=== PATIENT | female | born 1995 | race Caucasian/White ===

== ENCOUNTER 2017-05-08 07:03 | Inpatient (IN) | payer MEDICAID ==
[2017-05-08] MEDS ORDERED: Carboprost Tromethamine 250 MCG/1 ML Amp IM PRN (07:13)
[2017-05-08] MEDS ORDERED: Nalbuphine 10 MG/1 ML Vial IVPUSH PRN (07:13)
[2017-05-08] MEDS ORDERED: Sodium Chloride 0.9% 10 ML Syringe FLUSH PRN (07:13)
[2017-05-08] MEDS ORDERED: Butorphanol 1 MG/ML SDV IVPUSH PRN (07:13)
[2017-05-08] MEDS ORDERED: Terbutaline 1 MG/ML SDV SUBCUT PRN (07:13)
[2017-05-08] MEDS ORDERED: Misoprostol 200 MCG Tab PO PRN (07:13)
[2017-05-08] MEDS ORDERED: Water For Irrigation,Sterile 1,000 ML Container IRR PRN (07:13)
[2017-05-08] MEDS ORDERED: Lidocaine 1% 50 ML MDV INJECT PRN (07:13)
[2017-05-08] MEDS ORDERED: Methylergonovine 0.2 MG/1 ML Amp IM PRN ×2 (07:13→14:03)
[2017-05-08] MEDS ORDERED: Sodium Chloride 0.9% 2.5 ML Syringe FLUSH PRN (07:13)
[2017-05-08] MEDS ORDERED: Oxytocin/Lactated Ringers 30 UNIT/500 ML BAG IV SCH ×2 (07:15)
[2017-05-08] MEDS: Lactated Ringers 1,000 ML IV SCH ×2 (08:05→11:12)
--- NOTE | 2017-05-08 08:07 | PCM.PNPP ---
- General Info Date of Service: 05/08/17 Admission Dx/Problem (Free Text): Induction of labor - Patient Data Weight - Most Recent: 83.007 kg Lab Results - Last 24 Hours: Laboratory Results - last 24 hr 05/08/17 Range/Units 07:38 WBC 10.86 (4.0-11.0) K/uL RBC 3.79 L (4.30-5.90) M/uL Hgb 10.7 L (12.0-16.0) g/dL Hct 32.2 L (36.0-46.0) % MCV 85.0 (80.0-98.0) fL MCH 28.2 (27.0-32.0) pg MCHC 33.2 (31.0-37.0) g/dL RDW Std Deviation 41.2 (28.0-62.0) fl RDW Coeff of Park 14 (11.0-15.0) % Plt Count 310 (150-400) K/uL MPV 9.20 (7.40-12.00) fL Nucleated RBC % 0.0 /100WBC Nucleated RBCs # 0 K/uL Med Orders - Current: Current Medications Butorphanol Tartrate (Stadol) 1 mg IVPUSH Q1H PRN PRN Reason: Pain Carboprost Tromethamine (Hemabate Ds) 250 mcg IM ASDIRECTED PRN PRN Reason: Post Hemorrhage Lactated Ringer's (Ringers, Lactated) 1,000 mls @ 150 mls/hr IV ASDIRECTED LAUREL Oxytocin/Lactated Ringer's (Pitocin In Lr 30 Units/500 Ml) 30 unit in 500 mls @ 2 mls/hr IV TITRATE LAUREL; 2 MUNITS/MIN PRN Reason: Protocol Lidocaine HCl (Xylocaine 1%) 50 ml INJECT .ONCE PRN PRN Reason: Laceration repair Methylergonovine Maleate (Methergine) 0.2 mg IM ASDIRECTED PRN PRN Reason: Post Hemorrhage Misoprostol (Cytotec) 200 mcg PO .ONCE PRN PRN Reason: Post Hemorrhage Nalbuphine HCl (Nubain) 10 mg IVPUSH Q1H PRN PRN Reason: Pain (severe 7-10) Sodium Chloride (Saline Flush) 10 ml FLUSH ASDIRECTED PRN PRN Reason: Keep Vein Open Sodium Chloride (Saline Flush) 2.5 ml FLUSH ASDIRECTED PRN PRN Reason: Keep Vein Open Sterile Water (Sterile Water For Irrigation) 1,000 ml IRR ASDIRECTED PRN PRN Reason: delivery Terbutaline Sulfate (Brethine) 0.25 mg SUBCUT ASDIRECTED PRN PRN Reason: Tacysystole Discontinued Medications Oxytocin/Lactated Ringer's (Pitocin In Lr 30 Units/500 Ml) 30 unit in 500 mls @ 999 mls/hr IV TITRATE LAUREL; 999 MUNITS/MIN PRN Reason: Protocol Stop: 05/08/17 07:46
--- NOTE | 2017-05-08 11:20 | PCM.PREANE ---
Preanesthetic Assessment - Anesthesia/Transfusion/Family Hx Anesthesia History: Prior Anesthesia Without Reaction (with Spinal headache) - Review of Systems General: No Symptoms Pulmonary: No Symptoms Cardiovascular: No Symptoms Gastrointestinal: No Symptoms Neurological: No Symptoms Other: Reports: None - Physical Assessment Height: 5 ft 5 in Weight: 83.007 kg ASA Class: 2 Mental Status: Alert & Oriented x3 Airway Class: Mallampati = 2 Dentition: Reports: Normal Dentition Thyro-Mental Finger Breadths: 3 Mouth Opening Finger Breadths: 3 ROM/Head Extension: Full Lungs: Clear to Auscultation, Normal Respiratory Effort Cardiovascular: Regular Rate, Regular Rhythm - Lab Values: Laboratory Last Values WBC 10.86 K/uL (4.0-11.0) 05/08/17 07:38 RBC 3.79 M/uL (4.30-5.90) L 05/08/17 07:38 Hgb 10.7 g/dL (12.0-16.0) L 05/08/17 07:38 Hct 32.2 % (36.0-46.0) L 05/08/17 07:38 MCV 85.0 fL (80.0-98.0) 05/08/17 07:38 MCH 28.2 pg (27.0-32.0) 05/08/17 07:38 MCHC 33.2 g/dL (31.0-37.0) 05/08/17 07:38 RDW Std Deviation 41.2 fl (28.0-62.0) 05/08/17 07:38 RDW Coeff of Park 14 % (11.0-15.0) 05/08/17 07:38 Plt Count 310 K/uL (150-400) 05/08/17 07:38 MPV 9.20 fL (7.40-12.00) 05/08/17 07:38 Nucleated RBC % 0.0 /100WBC 05/08/17 07:38 Nucleated RBCs # 0 K/uL 05/08/17 07:38 Blood Type O POSITIVE 05/08/17 07:38 Antibody Screen NEGATIVE 05/08/17 07:38 - Allergies Allergies/Adverse Reactions: Allergies Allergy/AdvReac Type Severity Reaction Status Date / Time oxycodone Allergy Itching Verified 05/03/17 18:43 sulfamethoxazole Allergy Cannot Verified 05/03/17 18:44 [From ] Remember trimethoprim [From ] Allergy Cannot Verified 05/03/17 18:44 Remember - Acknowledgements Anesthesia Type Planned: Epidural Pt an Appropriate Candidate for the Planned Anesthesia: Yes Alternatives and Risks of Anesthesia Discussed w Pt/Guardian: Yes Pt/Guardian Understands and Agrees with Anesthesia Plan: Yes PreAnesthesia Questionnaire HEENT History: Reports: None Cardiovascular History: Reports: None Respiratory History: Reports: None Gastrointestinal History: Reports: GERD Genitourinary History: Reports: None TRANSPORTATION SUPERVISOR History: Reports: : 6 Para: 1 LMP (Approximate): Musculoskeletal History: Reports: None Neurological History: Reports: None Psychiatric History: Reports: None Endocrine/Metabolic History: Reports: None Hematologic History: Reports: Anemia Immunologic History: Reports: None Oncologic (Cancer) History: Reports: None Dermatologic History: Reports: None - Infectious Disease History Infectious Disease History: Reports: None - Past Surgical History Female Surgical History: Reports: D&C (multiple missed AB) - HOME MEDS Home Medications: Home Meds PNV95/Ferrous Fumarate/FA [ Tablet] 05/08/17 [History] - CURRENT (IN HOUSE) MEDS Current Meds: Current Medications Butorphanol Tartrate (Stadol) 1 mg IVPUSH Q1H PRN PRN Reason: Pain Last Admin: 05/08/17 10:19 Dose: 1 mg Carboprost Tromethamine (Hemabate Ds) 250 mcg IM ASDIRECTED PRN PRN Reason: Post Hemorrhage Lactated Ringer's (Ringers, Lactated) 1,000 mls @ 150 mls/hr IV ASDIRECTED LAUREL Last Admin: 05/08/17 11:12 Dose: 150 mls/hr Oxytocin/Lactated Ringer's (Pitocin In Lr 30 Units/500 Ml) 30 unit in 500 mls @ 2 mls/hr IV TITRATE LAUREL; 2 MUNITS/MIN PRN Reason: Protocol Last Admin: 05/08/17 08:17 Dose: 2 munits/min, 2 mls/hr Lidocaine HCl (Xylocaine 1%) 50 ml INJECT .ONCE PRN PRN Reason: Laceration repair Methylergonovine Maleate (Methergine) 0.2 mg IM ASDIRECTED PRN PRN Reason: Post Hemorrhage Misoprostol (Cytotec) 200 mcg PO .ONCE PRN PRN Reason: Post Hemorrhage Nalbuphine HCl (Nubain) 10 mg IVPUSH Q1H PRN PRN Reason: Pain (severe 7-10) Sodium Chloride (Saline Flush) 10 ml FLUSH ASDIRECTED PRN PRN Reason: Keep Vein Open Sodium Chloride (Saline Flush) 2.5 ml FLUSH ASDIRECTED PRN PRN Reason: Keep Vein Open Sterile Water (Sterile Water For Irrigation) 1,000 ml IRR ASDIRECTED PRN PRN Reason: delivery Terbutaline Sulfate (Brethine) 0.25 mg SUBCUT ASDIRECTED PRN PRN Reason: Tacysystole Discontinued Medications Oxytocin/Lactated Ringer's (Pitocin In Lr 30 Units/500 Ml) 30 unit in 500 mls @ 999 mls/hr IV TITRATE LAUREL; 999 MUNITS/MIN PRN Reason: Protocol Stop: 05/08/17 07:46
[2017-05-08] MEDS ORDERED: fentaNYL 100 MCG/2 ML SDV ONE (11:21)
[2017-05-08] MEDS ORDERED: Ropivacaine HCl/PF 100 ML ONE (11:21)
[2017-05-08] MEDS ORDERED: Docusate Sodium 100 MG Cap PO PRN (14:03)
[2017-05-08] MEDS ORDERED: Benzocaine/Menthol 20%-0.5% Spray 78 GM Cannister TOP PRN (14:03)
[2017-05-08] MEDS ORDERED: Witch Hazel Medicated Pads 40/Jar TOP PRN (14:03)
[2017-05-08] MEDS ORDERED: Bisacodyl 10 MG Supp RECTAL PRN (14:03)
[2017-05-08] MEDS ORDERED: Lanolin 100% Cream 7 GM Tube TOP PRN (14:03)
[2017-05-08] MEDS ORDERED: Acetaminophen 500 MG Tab PO PRN (14:03)
[2017-05-08] MEDS: Ibuprofen 800 MG Tab PO PRN (18:20)
--- NOTE | 2017-05-08 22:04 | OR ---
SURGEON: Demetria Arguelles M.D. DATE OF PROCEDURE: 05/08/2017 PREOPERATIVE DIAGNOSIS: A 39 and 1/7th week intrauterine , she lives remote from the hospital. POSTOPERATIVE DIAGNOSIS: A 39 and 1/7th week intrauterine , she lives remote from the hospital. PROCEDURE: Pitocin induction of labor, term spontaneous vaginal delivery with repair of second-degree laceration. POWER CLEANER OPERATOR: Phoenix Flowers MS4. ANESTHESIA: Epidural and local. ESTIMATED BLOOD LOSS: Less than 300 mL. FINDINGS: Live born male, score 9 and 9, weight of 3820 g. Placenta spontaneous, Schultze intact with 3 vessels. Second-degree perineal laceration repaired. COMPLICATIONS: None known. BRIEF HISTORY: This is a 22-year-old female. She is G6, P4-0-1-4. She presents at 39 and 1/7th weeks' gestation being 3 cm, 80%, -2 station, for induction of labor. She received IV Pitocin. She had artificial rupture of membranes. She was group B strep negative. She had category 1 heart tones. Clear fluid was noted. She received an epidural for pain control. She progressed to complete. DESCRIPTION OF PROCEDURE: With the patient in dorsal lithotomy position, the patient pushed over 20-minute time period to a 5+ station, at which time the head was delivered spontaneously and atraumatically over the perineum with support with subsequent delivery of the infant's shoulders and body without any difficulty. The infant was handed to the mother in the presence of the nurse delivery. The was a liveborn male, score 9 and 9, weighing 3820 g. After the cord had ceased to pulsate, it was doubly clamped and cut. Cord blood was collected for cord ABGs as well as routine cord blood sampling. Pitocin had been initiated after delivery of the infant to assist with delivery of the placenta, which was delivered spontaneously. Schultze intact with 3 vessels. Upon inspection of the pelvis and perineum, there were no periurethral, vaginal sidewall, cervical, or rectal lacerations. There was a small second-degree perineal laceration, which was infiltrated with 10 mL of 1% lidocaine. A 2-0 Caprosyn was used in a running lock suture for the vaginal mucosa followed by a deep running suture for the perineum and using the subcuticular suture for the perineal skin. Final sponge, needle, and instrument count were correct. There were no known complications. The and mother remained in LDRP in good condition. SHOSHANA BAJWA /[id number]
[2017-05-09] MEDS: Ibuprofen 800 MG Tab PO PRN (07:06)
--- NOTE | 2017-05-09 07:54 | PCM.PNPP ---
- General Info Date of Service: 05/09/17 Functional Status: Reports: Pain Controlled, Tolerating Diet, Ambulating, Urinating - Review of Systems General: Denies: Fever, Fatigue, Malaise, Chills HEENT: Denies: Headaches, Visual Changes Pulmonary: Denies: Shortness of Breath, Pleuritic Chest Pain Cardiovascular: Denies: Chest Pain, Palpitations, Dyspnea on Exertion Gastrointestinal: Denies: Abdominal Pain Genitourinary: Denies: Dysuria, Incontinence Psychiatric: Denies: Confusion, Depression, Mood Lability, Anxiety - General Info Date of Service: 05/09/17 - Patient Data Vital Signs - Most Recent: Last Vital Signs Temp 36.8 C 05/09/17 04:00 Pulse 110 H 05/09/17 04:00 Resp 18 05/09/17 04:00 BP 120/68 05/09/17 04:00 Pulse Ox 97 05/09/17 04:00 Weight - Most Recent: 183 lb Lab Results - Last 24 Hours: Laboratory Results - last 24 hr 05/08/17 05/09/17 Range/Units 07:38 04:48 Hgb 8.8 L (12.0-16.0) g/dL Hct 26.6 L (36.0-46.0) % Blood Type O POSITIVE Antibody Screen NEGATIVE Med Orders - Current: Current Medications Acetaminophen (Tylenol Extra Strength) 1,000 mg PO Q4H PRN PRN Reason: Pain Benzocaine/Menthol (Dermoplast Pain Relief 20%-0.5% [place]) 78 gm TOP ASDIRECTED PRN PRN Reason: Perineal Comfort Measure Last Admin: 05/08/17 15:57 Dose: 1 canister Bisacodyl (Dulcolax) 10 mg RECTAL .ONCE PRN PRN Reason: Constipation Docusate Sodium (Colace) 100 mg PO BID PRN PRN Reason: Constipation Emollient Ointment (Lansinoh Hpa) 0 gm TOP ASDIRECTED PRN PRN Reason: Sore Nipples Last Admin: 05/08/17 15:57 Dose: 1 tube Ibuprofen (Motrin) 800 mg PO Q6H PRN PRN Reason: Pain Last Admin: 05/09/17 07:06 Dose: 800 mg Methylergonovine Maleate (Methergine) 0.2 mg IM .ONCE PRN PRN Reason: Excessive Vaginal Bleeding Witch Annie (Tucks) 1 pad TOP ASDIRECTED PRN PRN Reason: comfort care Last Admin: 05/08/17 15:57 Dose: 1 tub Discontinued Medications Butorphanol Tartrate (Stadol) 1 mg IVPUSH Q1H PRN PRN Reason: Pain Last Admin: 05/08/17 10:19 Dose: 1 mg Carboprost Tromethamine (Hemabate Ds) 250 mcg IM ASDIRECTED PRN PRN Reason: Post Hemorrhage Fentanyl (Sublimaze) Confirm Administered Dose 100 mcg .ROUTE .FishBrain-Flowboard ONE Stop: 05/08/17 11:22 Last Admin: 05/08/17 13:04 Dose: Not Given Lactated Ringer's (Ringers, Lactated) 1,000 mls @ 150 mls/hr IV ASDIRECTED LAUREL Last Admin: 05/08/17 11:12 Dose: 150 mls/hr Oxytocin/Lactated Ringer's (Pitocin In Lr 30 Units/500 Ml) 30 unit in 500 mls @ 999 mls/hr IV TITRATE LAUREL; 999 MUNITS/MIN PRN Reason: Protocol Stop: 05/08/17 07:46 Last Admin: 05/08/17 14:18 Dose: Not Given Oxytocin/Lactated Ringer's (Pitocin In Lr 30 Units/500 Ml) 30 unit in 500 mls @ 2 mls/hr IV TITRATE LAUREL; 2 MUNITS/MIN PRN Reason: Protocol Last Titration: 05/08/17 13:40 Dose: 999 mls/hr Ropivacaine (Naropin 0.2%) Confirm Administered Dose 100 mls @ as directed .ROUTE .[email or web address] ONE Stop: 05/08/17 11:22 Last Admin: 05/08/17 13:04 Dose: Not Given Lidocaine HCl (Xylocaine 1%) 50 ml INJECT .ONCE PRN PRN Reason: Laceration repair Last Admin: 05/08/17 14:18 Dose: 50 ml Methylergonovine Maleate (Methergine) 0.2 mg IM ASDIRECTED PRN PRN Reason: Post Hemorrhage Misoprostol (Cytotec) 200 mcg PO .ONCE PRN PRN Reason: Post Hemorrhage Nalbuphine HCl (Nubain) 10 mg IVPUSH Q1H PRN PRN Reason: Pain (severe 7-10) Sodium Chloride (Saline Flush) 10 ml FLUSH ASDIRECTED PRN PRN Reason: Keep Vein Open Sodium Chloride (Saline Flush) 2.5 ml FLUSH ASDIRECTED PRN PRN Reason: Keep Vein Open Sterile Water (Sterile Water For Irrigation) 1,000 ml IRR ASDIRECTED PRN PRN Reason: delivery Last Admin: 05/08/17 14:18 Dose: 1,000 ml Terbutaline Sulfate (Brethine) 0.25 mg SUBCUT ASDIRECTED PRN PRN Reason: Tacysystole - Infant Interaction Disposition, : [place] in Room with Family Interaction: Holding Feeding: Breastfed ; Nursed Well Support Person: Significant Other - Recovery Exam Fundal Tone: Firm Fundal Level: 1 Fingerbreadths Below Umbilicus Fundal Placement: Midline Lochia Amount: Scant Lochia Color: Rubra/Red Perineum Description: Other (see below) Other Perinuem Description: minimal swelling Episiotomy/Laceration: Approximated Bladder Status: Voiding Urinary Elimination: Voided - Exam General: Alert, Oriented HEENT: Pupils Equal Lungs: Clear to Auscultation, Normal Respiratory Effort Cardiovascular: Regular Rate, Regular Rhythm GI/Abdominal Exam: Normal Bowel Sounds, Non-Tender Extremities: Non-Tender, Pedal Edema Skin: Warm Psy/Mental Status: Alert, Normal Affect, Normal Mood - Problem List & Annotations (1) Vaginal delivery SNOMED Code(s): 261159368 Code(s): O80 - ENCOUNTER FOR FULL-TERM UNCOMPLICATED DELIVERY Status: Acute Current Visit: Yes (2) Anemia SNOMED Code(s): 155973419 Code(s): D64.9 - ANEMIA, UNSPECIFIED Status: Acute Current Visit: Yes Qualifiers: Anemia type: iron deficiency Iron deficiency anemia type: other iron deficiency Qualified Code(s): D50.8 - Other iron deficiency anemias - Problem List Review Problem List Initiated/Reviewed/Updated: Yes - Assessment Assessment:: PPD31 s/p , stable and afebrile Post anemia- asymptomatic Clinically stable for discharge - Plan Plan:: Discharge instructions reviewed Nothing in the vagina for 6 weeks Bleeding and infection precautions reviewed Continue PNV. Will start Iron tabs for anemia S/S of depression reviewed Follow up in 6 weeks
[2017-05-09 08:21] VITALS: BP 120/73
--- NOTE | 2017-05-09 09:06 | PCM48HPAN ---
Post Anesthesia Note - EVALUATION WITHIN 48HRS OF ANESTHETIC Vital Signs in Normal Range: Yes Patient Participated in Evaluation: Yes Respiratory Function Stable: Yes Airway Patent: Yes Cardiovascular Function Stable: Yes Hydration Status Stable: Yes Pain Control Satisfactory: Yes Nausea and Vomiting Control Satisfactory: Yes Mental Status Recovered: Yes
== END 2017-05-09 14:50 | disposition home or self-care (01) | DRG 775 ==
LOC: MW.OBCHECK 07:03 → MW.OB 07:06 → MW.OBCHECK 07:13 → MW.OB 07:13 → OBSVTOIN 13:39 → MW.OB 13:39
PROVIDERS: ADMIT Obstetrics & Gynecology; ATTEND Obstetrics & Gynecology
PROC: 10E0XZZ Delivery of Products of Conception, External Approach (ICD-10-PCS; principal; 2017-05-08)
PROC: 0KQM0ZZ Repair Perineum Muscle, Open Approach (ICD-10-PCS; 2017-05-08)
PROC: 10907ZC Drainage of Amniotic Fluid, Therapeutic from Products of Conception, Via Natural or Artificial Opening (ICD-10-PCS; 2017-05-08)
PROC: 3E033VJ Introduction of Other Hormone into Peripheral Vein, Percutaneous Approach (ICD-10-PCS; 2017-05-08)
DX: O70.1 Second degree perineal laceration during delivery (principal); Z37.0 Single live birth; O99.02 Anemia complicating childbirth; Z3A.39 39 weeks gestation of pregnancy
CPT/HCPCS: 36415; 59025; 85014; 85018; 85027; 86850; 86900; 86901; A9270-GY; J0595; J7120